=== PATIENT | female | born 1970 | race Caucasian/White ===

== ENCOUNTER 2018-09-13 18:18 | Emergency (ER) | payer BC, MEDICAID | END 2018-09-13 21:26 | disposition home or self-care (01) | LOC: FTE 18:18 | DX: S50.01XA Contusion of right elbow, initial encounter (principal); S60.212A Contusion of left wrist, initial encounter; X50.0XXA Overexertion from strenuous movement or load, initial encounter; Y92.9 Unspecified place or not applicable | CPT/HCPCS: 73080; 73080-RT; 73110-LT; 99284-25 ==